=== PATIENT | male | born 1985 | race African-American/Black ===

== ENCOUNTER 2020-03-19 15:43 | Emergency (ER) | payer MEDICAID ==
[~2020-03-19] VITALS: Ht 180.3 cm; Wt 104.3 kg
[2020-03-19 15:50] VITALS: BP 145/79
--- NOTE | 2020-03-19 15:50 | NUR ---
ED Nurse Note: Pt ambulated to ed stating "i was exposed to person with covid 03/11/2020, been feeling whoozy, sleepy, cough and runs". Pt AOx4, calm and cooperative to care, VSS , on RA, afebrile on triage.
--- NOTE | 2020-03-19 16:59 | Emergency Room Report ---
History of Present Illness General Chief Complaint: General Complaint Source: Patient Present Illness HPI 34-year-old male presents with body aches, fatigue, chills, patient encountered a positive Covid patient a few days ago no aggravating relieving factors severity is moderate, constant patient presents for evaluation and treatment Allergies: Coded Allergies: No Known Allergies (Unverified , 03/19/20) COVID-19 Screening Contact w/high risk pt: Yes Experienced COVID-19 symptoms?: Yes COVID-19 Testing performed EDGE INKER UPPERS: No Patient History Past Medical History: see triage record Reviewed Nursing Documentation: PMH: Agreed; PSxH: Agreed Nursing Documentation-PM Past Medical History: No Stated History Review of Systems All Other Systems: negative except mentioned in HPI Physical Exam Vital Signs Date Time Temp Pulse Resp B/P (MAP) Pulse Ox O2 Delivery O2 Flow Rate FiO2 03/19/20 15:46 97.9 99 19 145/79 (101) 98 Room Air Sp02 EP Interpretation: reviewed, normal General Appearance: well appearing, no apparent distress, alert Head: normocephalic, atraumatic Eyes: bilateral eye PERRL, bilateral eye EOMI ENT: uvula midline, moist mucus membranes Neck: supple, thyroid normal, supple/symm/no masses Respiratory: lungs clear, no respiratory distress, no retraction, no accessory muscle use Cardiovascular #1: normal peripheral pulses, regular rate, rhythm, no edema, no gallop, no murmur Gastrointestinal: non tender, soft, no guarding, no rebound Musculoskeletal: normal inspection Neurologic: alert, oriented x3 Psychiatric: mood/affect normal Skin: no rash, warm/dry Medical Decision Making Diagnostic Impression: Primary Impression: COVID-19 ER Course 34-year-old male presents for Covid testing Covid swab sent No indications for oxygenation Patient in no acute distress disposition home with return precautions follow-up with PCP Last Vital Signs Date Time Temp Pulse Resp B/P (MAP) Pulse Ox O2 Delivery O2 Flow Rate FiO2 03/19/20 15:46 97.9 99 19 145/79 (101) 98 Room Air Disposition: HOME, SELF-CARE Condition: Stable Referrals: NOT CHOSEN IPA/,REFERRING (PCP) [facility] Abena Salcedo [facility]. [facility] Patient Instructions: Upper Respiratory Infection, Adult, [id number] Additional Instructions: The patient was provided with discharge instructions, notified to follow-up with a primary care doctor and or specialist in the next 24-48 hours, and to return to the ED if they have worsening of their symptoms. Please note that this report is being documented using [employer] technology. This can lead to erroneous entry secondary to incorrect interpretation by the dictating instrument. Antonio Barahona MD Mar 19, 2020 16:59
[2020-03-19 17:01] VITALS: BP 146/80
--- NOTE | 2020-03-19 17:01 | NUR ---
ER DISCHARGE NOTE: Patient is cleared to be discharged per ERMD, pt is aox4, on room air, with stable vital signs. pt was given dc and prescription instructions, pt was able to verbalize understanding, pt id band removed. pt is able to ambulate with steady gait. pt took all belongings.
== END 2020-03-19 17:01 | disposition home or self-care (01) ==
LOC: EMR 16:00
DX: U07.1 COVID-19 (principal); R68.83 Chills (without fever); R53.83 Other fatigue; R52 Pain, unspecified
CPT/HCPCS: 99281